=== PATIENT | female | born 1945 | race Asian ===

== ENCOUNTER 2018-03-08 08:52 | Inpatient (IN) | payer OTHER ==
[2018-03-08] VITALS (7 sets, daily range): BP systolic 128–165; BP diastolic 67–79; Ht 162.6 cm; Wt 53.5 kg
[~2018-03-08] VITALS: Ht 162.6 cm; Wt 53.5 kg
[2018-03-08 09:30] LABS: CALCIUM 8.7 mg/dL (8.5-10.1); CARBON DIOXIDE 25.7 mmol/L (21-32); CHLORIDE SERUM 93 mmol/L (98-107); CREATININE SERUM 0.7 mg/dL (0.6-1.0); GFR1 > 60 mL/min; GLUCOSE SERUM 109 mg/dL (74-106); POTASSIUM SERUM 4.1 mmol/L (3.5-5.1); SODIUM SERUM 126 mmol/L (136-145)
[2018-03-08 09:34] LABS: ALBUMIN 3.7 g/dL (3.4-5.0); ALKALINE PHOSPHATASE 89 U/L (46-116); ALT/SGPT 28 U/L (14-59); AST/SGOT 16 U/L (15-37); BILIRUBIN TOTAL 0.48 mg/dL (0.20-1.00); TOTAL PROTEIN, SERUM 7.6 g/dL (6.4-8.2)
[2018-03-08 09:45] LABS: BASOPHIL % 0.3 % (0-2); PLATELET COUNT 273 x10^3mcL (130-400); RED CELL DISTRIBUTION WIDTH 13.8 % (11.5-14.5)
[2018-03-08 10:55] LABS: microscopic required? NO
[2018-03-08] MEDS ORDERED: METOPROLOL SUCC50 M2 PO (10:57)
[2018-03-08] MEDS ORDERED: LEXAPRO10 MG PO (10:57)
[2018-03-08 11:06] LABS: PHOSPHOROUS 2.9 mg/dL (2.5-4.9)
[2018-03-08 11:08] LABS: CHOLESTEROL/HDL RATIO 1.9
[2018-03-08 11:12] LABS: T3 TOTAL 0.89 ng/mL
[2018-03-08 11:16] LABS: FREE T4 1.39 ng/dL (0.76-1.46); FREE THYROXINE INDEX 3.9 ug/dL (1.4-4.5); T4(THYROXINE) 10.5 ug/dL (4.7-13.3)
[2018-03-08 11:25] LABS: urine erythrocyte NEGATIVE (NEGATIVE)
[2018-03-08 11:29] LABS: AMPHETAMINE QUAL UR NONE DETECTED (See below)
[2018-03-09 05:40] VITALS: BP 140/67
[2018-03-09 06:29] LABS: BASOPHIL % 0.2 % (0-2); CARBON DIOXIDE 27.1 mmol/L (21-32); CHLORIDE SERUM 92 mmol/L (98-107); PLATELET COUNT 227 x10^3mcL (130-400); POTASSIUM SERUM 3.7 mmol/L (3.5-5.1); RED CELL DISTRIBUTION WIDTH 13.9 % (11.5-14.5); SODIUM SERUM 125 mmol/L (136-145)
[2018-03-09 06:46] LABS: CALCIUM 8.6 mg/dL (8.5-10.1); CREATININE SERUM 0.7 mg/dL (0.6-1.0); GFR1 > 60 mL/min; GLUCOSE SERUM 114 mg/dL (74-106)
[2018-03-09 08:17] VITALS: BP 142/60
[2018-03-09 13:24] VITALS: BP 145/67
[2018-03-09] MEDS ORDERED: MECLIZINE HYD12.5 MG PO (13:52)
[2018-03-09 13:59] VITALS: BP 145/67
== END 2018-03-09 14:52 | disposition home or self-care (01) | DRG 391 ==
LOC: ED 08:52 → DU 10:12
PROVIDERS: Emergency Medicine; Internal Medicine
DX: K21.9 Gastro-esophageal reflux disease without esophagitis (principal); G93.41 Metabolic encephalopathy; E87.1 Hypo-osmolality and hyponatremia; F41.9 Anxiety disorder, unspecified; G90.9 Disorder of the autonomic nervous system, unspecified; T43.225A Adverse effect of selective serotonin reuptake inhibitors, initial encounter; S09.90XA Unspecified injury of head, initial encounter; H93.19 Tinnitus, unspecified ear; H53.149 Visual discomfort, unspecified; R06.02 Shortness of breath; M25.519 Pain in unspecified shoulder; I10 Essential (primary) hypertension; Z68.20 Body mass index [BMI] 20.0-20.9, adult; W22.8XXA Striking against or struck by other objects, initial encounter; Y92.9 Unspecified place or not applicable; Y92.009 Unspecified place in unspecified non-institutional (private) residence as the place of occurrence of the external cause
CPT/HCPCS: 83880; 84439; J1885; J3490; J7030; J8597; Q0092